=== PATIENT | male | born 1945 | race Caucasian/White ===

== ENCOUNTER 2020-02-09 05:54 | Day surgery (SDC) | payer MEDICARE, OTHER, SELFPAY ==
[2020-02-09] VITALS (11 sets, daily range): BP systolic 112–142; BP diastolic 69–97; PULSE 55–66; RESP 14–16; TEMP 35.9–36.4; O2SAT 92–100; BMI 39.2
[2020-02-09] MEDS: Lactated Ringers 1,000 ML 100 ML IV (06:32)
--- NOTE | 2020-02-09 07:34 | DCINST_ITS ---
Discharge Diet: No Restrictions Discharge Activity: Return to Normal Activity, May Not Drive - for 2 days. Additional Activity Instructions:: Please be aware that pain medications may cause nausea. You should typically eat light foods as you take your pain medication. Pain medication may cause constipation, if this is a problem for you, please discuss with your doctor. Allergies/Adverse Reactions: Allergies No Known Allergies Allergy (Verified 02/09/20 06:11) Medications to take at Discharge Acetaminophen [Tylenol 8 Hour] 2 tab PO QHS 02/02/20 Atorvastatin Calcium [Lipitor] 20 mg PO QHS 02/02/20 Levothyroxine [Synthroid] 125 mcg PO DAILY 02/02/20 Lisinopril/Hydrochlorothiazide [Lisinopril-Hctz 20-25 mg Tab] 1 ea PO DAILY 02/02/20 [place]-3 Fatty Acids/Fish Oil [Fish Oil 1,000 mg Capsule] 2 ea PO DAILY 02/02/20 Primary Care Physician: Dayday Mcmillan MD [Primary Care Provider] - Test Results: Test results from this visit will be discussed in further detail at your follow- up appointment, if applicable. Please Follow Up With: Aniceto Cano MD When: in 2 weeks, please call to make an appointment.
[2020-02-09] MEDS: Cefazolin 2 GM in 0.9% Normal Saline 100 ML IV (07:36)
--- NOTE | 2020-02-09 08:07 | PCM.OPRPT ---
Report of Operation Date of Procedure: 02/09/20 Pre-Operative Diagnosis: Prostate cancer Post-Operative Diagnosis: The same Surgery/Procedure Performed:: Transrectal ultrasound-guided placement of 3 fiducial markers for prostate cancer, planning radiation. Placement of spacer organ at risk gel matrix to protect the rectum and toxicities of radiation. Description of Surgical Findings:: Insert patient is a male with prostate cancer who is elected to undergo radiation therapy. Today he presents for an outpatient procedure for placement of gold fiducial markers for radiation planning and also placement of spacer organ at risk gel matrix. Patient was advised as to the risk and benefits to the procedure including the risk of bleeding, migration of the gold markers, infection, the risk of anesthesia, the risk of treatment of his prostate cancer with radiation and associated risks of radiation therapy for prostate cancer. We also discussed the risk that the gel matrix may not offer protection as discussed. Patient was given ample time to answer all his questions and he signed a consent form before taken back for procedure. Patient was taken back to the operating room after induction of anesthesia he was placed in dorsolithotomy position. A digital rectal exam was performed. The perineum was shaved prepped and draped in the usual sterile fashion. His legs were placed in high lithotomy. We then placed a ultrasound probe, biplanar into the rectum and performed ultrasonography of the prostate evaluating the prostate anatomy the apex, the base, the Denonvilliers' fascia was identified, and the seminal vesicles. The first gold fiducial marker was then introduced through the perineum into the prostate at the right base the stylette within the needle was pushed and the gold fiducial marker was deployed and then the entire needle was removed intact. Ultrasound was then used to confirm the placement of the first fiducial marker. Subsequently 2 more fiducial markers were placed in the same technique at the left base and left apex. The spacer gel matrix was then prepared in the back table using the commercial finance analyst's instructions. Once the matrix was prepared we used a needle bevel down with a marker and came into the midline peritoneum below the prostate until we entered into the space of Denonvilliers' fascia. A small injection of normal saline was used to confirm our location and then over a course of 10 to 12 seconds 10 cc of the gel matrix was slowly injected into the space between the prostate and the rectum and there was nice deflection of the rectum off the prostate creating a nice 1.5 cm gap between the rectum and the prostate. The entire needle and preparation was then removed ultrasonography was again performed to confirm the placement of the gel matrix in the appropriate position. The patient's anesthetic was reversed patient was cleaned taken out of stirrups and taken back to the recovery room in good condition. Type of Anesthesia:: Local MAC Drains: none - Admit VTE Documentation VTE Present on Admission: No VTE Mechan Device Prophylaxis: SCD's
--- NOTE | 2020-02-09 08:18 | EKG12_ITS ---
Test Reason : POST OP Blood Pressure : / mmHG Vent. Rate : 062 BPM Atrial Rate : 468 BPM P-R Int : 000 ms QRS Dur : 090 ms QT Int : 440 ms P-R-T Axes : 000 024 024 degrees QTc Int : 446 ms Atrial fibrillation Low voltage QRS Abnormal ECG No previous ECGs available Confirmed by ANDRIA DAILEY ([id number]), video news editor VA HUTCHINS ([id number]) on 02/14/2020 11:36:18 AM Referred By: Aniceto Cano Confirmed By:ANDRIA DAILEY
== END 2020-02-09 10:49 | disposition home or self-care (01) ==
LOC: SDC 05:56 → AC 05:58
PROVIDERS: PCP Family Medicine; Referring Provider Urology; Visit Provider Urology
PROC: (CPT 55874; principal; 2020-02-09 07:15)
DX: C61 Malignant neoplasm of prostate (principal); R97.20 Elevated prostate specific antigen [PSA]; I10 Essential (primary) hypertension; E78.00 Pure hypercholesterolemia, unspecified; E03.9 Hypothyroidism, unspecified; G47.30 Sleep apnea, unspecified; Z85.850 Personal history of malignant neoplasm of thyroid; Z79.899 Other long term (current) drug therapy
CPT/HCPCS: 55874; 55876; 93005; J7120; J3490

== ENCOUNTER → 2020-02-21 05:50 | Outpatient (CLI) | payer MEDICARE, OTHER, SELFPAY ==
[2020-02-09 06:12] VITALS: BMI 39.2
[2020-02-15 13:29] VITALS: BMI 39.0
--- NOTE | 2020-02-21 05:51 | ECHOD_ITS ---
Reason For Study: Afib, HTN Procedure This was a 2D Doppler, Color Flow transthoracic echocardiogram. Exam performed in department. Left Ventricle Normal LV size. Mild concentric left ventricular hypertrophy. Left ventricular systolic function is normal. The estimated ejection fraction is 65 %. Unable to assess diastolic dysfunction due to arrhythmia. No regional wall motion abnormalities noted. Atria The left atrium is moderately enlarged. The right atrium is mildly enlarged. Mitral Valve Mild focal mitral valve calcification. Mild (1+) eccentric mitral valve insufficiency. Tricuspid Valve Normal tricuspid valve. Mild (1+) tricuspid valve insufficiency. Pulmonary artery systolic pressure is 30 mmHg. Aortic Valve Normal aortic valve. Trisinus/trileaflet aortic valve. Pulmonic Valve Normal pulmonic valve. Great Vessels Normal aortic root. The pulmonary artery is normal size. Normal inferior vena cava. Pericardium/Pleural No pericardial effusion. MMode/2D Measurements & Calculations LVIDd: 4.1 cm IVSd: 1.3 cm Ao root diam: 3.1 cm LVIDs: 2.8 cm LVPWd: 1.3 cm RVDd: 3.7 cm FS: 32.3 % LAV(MOD-bp): 96.7 ml LVAd ap4: 30.5 cm2 SV(MOD-sp4): 52.2 ml LAV(MOD-bp) Indexed: 39.7 ml/m2 EDV(MOD-sp4): 93.1 ml LAV(MOD-sp2): 81.4 ml EDV(sp4-el): 96.3 ml LAV(MOD-sp4): 109.9 ml LVAs ap4: 18.6 cm2 ESV(MOD-sp4): 40.9 ml ESV(sp4-el): 40.7 ml EF(MOD-sp4): 56.1 % EF(sp4-el): 57.7 % SV(sp4-el): 55.5 ml LA A4 area: 31.7 cm2 LA dimension(2D): 5.9 cm RA A4 area: 24.7 cm2 Doppler Measurements & Calculations MV E max manju: 103.8 cm/sec Ao V2 max: 122.0 cm/sec LV V1 max: 92.2 cm/sec Ao max P.0 mmHg LV V1 max P.4 mmHg Ao V2 mean: 89.1 cm/sec Ao mean P.5 mmHg Ao V2 VTI: 25.8 cm PA V2 max: 111.0 cm/sec TR max manju: 257.3 cm/sec TR max P.5 mmHg Interpretation Summary Normal LV size. Mild concentric left ventricular hypertrophy. Left ventricular systolic function is normal. The estimated ejection fraction is 65 %. Unable to assess diastolic dysfunction due to arrhythmia. Mild (1+) eccentric mitral valve insufficiency. Mild (1+) tricuspid valve insufficiency. Ordering Physician: Gilberto Arvizu Referring Physician: Dayday Mcmillan Performed By: Rekha Lutz, ISAAC, RVT
--- NOTE | 2020-02-21 08:36 | STRESSREP ---
Stress Test Report Pharmacologic myocardial perfusion stress test 75-year-old man with a history of hypertension and atrial fibrillation. Stress protocol: Resting KG demonstrates atrial fibrillation with a rate of 59 bpm normal intervals are noted resting blood pressure is 118/64 mmHg. 0.4 mg of regadenoson was infused per usual protocol for overlap intravenous saline flush injection continuous EKG monitoring was performed. The maximum heart rate was 105 bpm which was 70% of maximum predicted heart rate the maximum workload was 1 metabolic equivalent. At rest there were no ST or T wave changes noted to suggest abnormal flow reserve at peak infusion nonspecific ST-T wave changes were noted. The resting blood pressure was 118/64 with a final blood pressure 128/72 mmHg. Myocardial perfusion protocol. 14.7 mCi of technetium 99m sestamibi was injected at rest. 0.4 mg of regadenoson was infused per usual protocol peak infusion 44.5 mCi of technetium 99m sestamibi was injected stress images were obtained stress and rest images were reconstructed and compared in the short axis vertical long horizontal long axis. Gated images were also obtained per Perfusion SPECT analysis: Review of the stress images demonstrate normal uptake of tracer noted in all areas of the myocardium. The resting images similar demonstrate normal uptake of tracer noted in all areas of the myocardium. No areas of reversibility are noted suggest ischemia no previous infarct is noted. Gated SPECT analysis: The gated ejection fraction is 67%. Conclusion: Normal pharmacologic myocardial perfusion stress test. Preserved ejection fraction. Chronic atrial fibrillation noted.
== END ==
PROVIDERS: PCP Family Medicine; Referring Provider Internal Medicine Cardiovascular Disease; Visit Provider Internal Medicine Cardiovascular Disease
DX: R94.31 Abnormal electrocardiogram [ECG] [EKG] (principal); I48.20 Chronic atrial fibrillation, unspecified; I10 Essential (primary) hypertension
CPT/HCPCS: 78452; 93017; 93306; A9500; A4216; J2785

== ENCOUNTER → 2020-02-25 12:38 | Outpatient (CLI) | payer MEDICARE, OTHER, SELFPAY ==
[2020-02-15 13:29] VITALS: BMI 39.0
[2020-02-24 15:09] LABS: Absolute Lymphocyte Count 0.97 X10^3/uL (0.83-4.51); Absolute Neutrophil Count 4.3 X10^3/uL (2.0-7.7); Basophil# 0.04 X10^3/uL; Basophil% 0.7 % (0-1); Eosinophil# 0.22 X10^3/uL; Eosinophils% 3.6 % (0-5); Hematocrit 43.7 % (40-54); Lymphocyte # 0.97 X10^3/ul (4.0); Lymphocyte % 15.9 % (19-41); Mean Corp Hgb Conc 34.3 g/dL (32-36); Mean Corpuscular Hgb 32.1 pg (27.0-32.0); Mean Corpuscular Volume 93.6 fL (80-94); Mean Platelet Vol. 9.5 fl (6.2-12.0); Monocyte# 0.58 X10^3/uL; Monocyte% 9.5 % (0-10); NRBC Flagged by Analyzer 0 % (0-5); Neutrophil # 4.27 X10^3/uL (2.7-7.7); Neutrophil % 69.8 % (47-70); Platelet Count 142 K/mm3 (150-450); RBC Distribution Width CV 12.9 % (11.6-14.6); RBC Distribution Width SD 44.3 fl (35.1-43.9); Red Blood Count 4.67 M/mm3 (4.6-6.2); White Blood Count 6.1 K/mm3 (4.4-11.0)
[2020-02-24 15:24] LABS: Creatinine, Serum 1.12 mg/dL (0.70-1.30); EST Glomerular Filtration Rate 68 mL/min (>60); Est Glom Filt Rate - Afr Amer 83 mL/min (>60); PSA,Total- Diagnostic 0.83 ng/mL (0.0-4.0)
--- NOTE | 2020-02-25 12:43 | CT_ITS ---
STUDY: CT PELVIS WITH CONTRAST REASON FOR EXAM: Male, 74 years old. Prostate cancer. THERAPY PLANNING RADIATION DOSAGE (If Supplied By Facility): CTDIvol = ( 24.62 ) mGy, DLP = ( 770.30 ) mGycm TECHNIQUE: Transaxial imaging of the pelvis was performed without oral contrast. was administered intravenously. Individualized dose optimization techniques were used for this CT. COMPARISON: None. FINDINGS: Normal urinary bladder. Central prostatic calcifications. Metallic radiation seeds are seen within the prostate. The prostate is not enlarged. The urethra is unremarkable. Normal visualized small intestine. There are scattered colonic diverticula of the sigmoid colon consistent with chronic diverticulosis. There is no pelvic fluid. There is no pelvic lymphadenopathy or mass lesion. There is diffuse atherosclerotic calcification of the pelvic arteries. Small umbilical hernia containing fat. Small bilateral inguinal lymph nodes. Normal osseous structures. CT/CT Pelvis W/CONT Therapy IMPRESSION: Prostatic calcifications. Metallic radiation seeds are seen. Electronically Signed: Ruddy Gonzalez, at 14:16 EDT , Service support ,
== END ==
PROVIDERS: PCP Family Medicine; Referring Provider Radiology Radiation Oncology; Visit Provider Radiology Radiation Oncology
DX: Z01.818 Encounter for other preprocedural examination (principal); C61 Malignant neoplasm of prostate
CPT/HCPCS: 36415; 51600; 72193; 82565; 84153; 85025; Q9967

== ENCOUNTER 2021-06-22 08:00 | Outpatient (RCR) | payer MEDICARE, OTHER, SELFPAY ==
[2021-04-24 14:07] VITALS: BMI 41.1
--- NOTE | 2021-06-12 16:15 | HP.OTEVAL_ITS ---
Patient's Visit Information GERMAIN DENNIS is a 75 year old M, referred to Occupational Therapy by Dr. Woodrow Sainz MD, with a diagnosis of lymphedema. Date of Evaluation: 06/11/21 Occupational Therapist: [place] Woody, MORROR/Brynn, CHT - Subjective This 75 year old male was seen for OT eval with dx of Lymphedema due to 44 radi ation treatments for prostate cancer. Pt states he has struggled with swelling for a while and last 6 month more issues with swelling. Pt states he would like to know what he can do to mtg the swelling. states he has compression socks but struggles with getting them on. States he has noticed more swelling above knees. pt also states he is having difficulty finding shoes to fit his feet. - Lymphedema (Circumferential Measure) Mid-foot: right 27.5cm left 27cm Ankle: right 36cm left 34cm Lower calf: right 36cm left 34cm Largest calf: right 51cm left 47cm Below knee: right 41cm left 41cm Lower Exremity Comments: pt demo with edema in bilateral LE - Lower Limb Functional Index Lower Extremity Functional Score: 61 - Goals Demonstrate a 20% reduction in edema by d/c: Yes Demonstrate adequate knowledge of self-massage by 2nd week: Yes Demonstrate adequate knowledge skin care/prec by 2nd week: Yes Demonstrate adequate knowledge therapeutic exercises by d/c: Yes Select approp compression garment w/donning/care/wear by d/c: Yes Voice need to replace compression garment every 4-6mo by dc: Yes - Rehabilitation General Assessment: Pt demo with secondary lymphedema stage 2. pt continues to struggle with edema and mtg of his bilateral leg swelling. pt would benefit from skilled OT services 2-3 visits to ed. pt on self manual lymph drainage, lymph stim exercises, use of compression garments- pt would benefit from home compression pump for LE like the flexi touch to assist in pts mtg. of lymphedema. Rehabilitation Potential: Good - Anticipated Interventions Education re Diagnosis, Education re Life-long lymphedema Management, Education re Skin Care and Precautions, Education re Self Massage Techniques, Education re Correct Donning Tech,Care&Wearing Sched Comp Garments, Home Program - Visit Plan Frequency: 1x/Week Duration: 3 Weeks TEXT: Thank you for the opportunity to evaluate your patient. For Medicare and Medicare HMO plans, please review the plan of care and approve it. It will need to be FAXED BACK to us at [phone] for Medicare purposes. Please let me know if there are questions or concerns regarding this plan of care. Physician Signature: Date:
--- NOTE | 2021-06-22 09:04 | OTREVAL_ITS ---
Dr. Woodrow Sainz MD, It has been my pleasure to treat GERMAIN DENNIS over the last 2 visits for lymphedema. Please see the progress note below for an update on the occupational therapy plan of care! Subjective: pt arrives to session with compression tights and compression socks sigvaris 20-30 mmHg- pt states he has been doing his lymph stim exercises and self manual lymph drainage massage but did not notice much change- pt did go to pool as rec'd and had a urine output the rest of the day and he did state he felt better. pt is looking into [employer] membership to assist with lymphedema mtg. Objective/Function: right LE calf 49cm a reduction from 51cm. right LE ankle 34cm no change. pt would benefit from use of a home compression pump to assist in mtg of LE lymphedema Plan Frequency: - PRN Plan: pt receptive to getting home compression pump. therapist will send info to [employer] to see if he qualifies for home compression pump. Goals - Goals Demonstrate a 20% reduction in edema by d/c: Yes Demonstrate adequate knowledge of self-massage by 2nd week: Yes Demonstrate adequate knowledge skin care/prec by 2nd week: Yes Demonstrate adequate knowledge therapeutic exercises by d/c: Yes Select approp compression garment w/donning/care/wear by d/c: Yes Voice need to replace compression garment every 4-6mo by dc: Yes Patient Goals: Learn how to Manage Lymphedema, Learn how to Apply Compression Stockings Anticipated Interventions Anticipated Interventions: Education re Diagnosis, Education re Life-long lymphedema Management, Education re Skin Care and Precautions, Education re Self Massage Techniques, Education re Correct Donning Tech,Care&Wearing Sched Comp Garments, Home Program Please do not hesitate to contact me at [phone] by phone or if you have questions or concerns regarding this new plan of care! Sincerely, [place] Woody, OTR/L, CHT
== END 2021-06-22 19:00 | disposition home or self-care (01) ==
LOC: OT 08:00
PROVIDERS: PCP Family Medicine; Referring Provider Family Medicine; Visit Provider Family Medicine
DX: I89.0 Lymphedema, not elsewhere classified (principal)
CPT/HCPCS: 97166; 97530